=== PATIENT | male | born 1985 | race Caucasian/White ===

== ENCOUNTER 2017-04-04 00:39 | Emergency (ER) | payer BC ==
[~2017-04-04] VITALS: Ht 182.9 cm; Wt 110.0 kg
[2017-04-04 01:20] LABS: HEMATOCRIT 38.4 % (38.0-50.0); MCH 30.2 PG (29.0-34.0); MCHC 34.9 G/DL (30.0-36.0); MCV 86.5 FL (86-99); MEAN PLAT.VOLUME 10.2 uM^3 (9.0-12.4); PLATELET COUNT 200 K/uL (156-360); RBC DIS.WIDTH-CV 11.8 % (11.8-14.6); RBC DIS.WIDTH-SD 37.3 % (39-53); RED BLOOD COUNT 4.44 M/uL (4.00-5.50)
[2017-04-04 01:34] LABS: CHLORIDE 107 mEq/L (99-109); POTASSIUM 3.7 mEq/L (3.7-5.4); SODIUM 141 mEq/L (136-147)
[2017-04-04 01:36] LABS: GLUCOSE 130 mg/dL (70-99)
[2017-04-04 01:37] LABS: ANION GAP 9 MEQ/L (2-14)
[2017-04-04 01:38] LABS: TOTAL BILIRUBIN 0.5 mg/dL (0.0-1.0)
[2017-04-04 01:39] LABS: ALKALINE PHOSPHATASE 61 IU/L (3-129)
[2017-04-04 01:41] LABS: UREA NITROGEN (BUN) 17 mg/dL (9-23)
[2017-04-04 01:42] LABS: D-DIMER ELISA < 0.15 mg/L FEU (< 0.57); GFR ESTIMATE (CALCULATED) > 59 mL/min/
[2017-04-04 01:57] LABS: TROP-I INTERPRETATION NEGATIVE; TROPONIN-I < 0.01 ng/mL (0.0-0.30)
[2017-04-04 04:08] LABS: ADD MIUA? YES; BILIRUBIN NEGATIVE; BLOOD NEGATIVE; COLOR YELLOW ((YELLOW)); GLUCOSE (STRIP) NEGATIVE; KETONES 20; LEUKOCYTES NEGATIVE; NITRITE NEGATIVE; PROTEIN (STRIP) NEGATIVE; SPECIFIC GRAVITY 1.026 (1.000-1.030); UROBILINOGEN 0.2 MG/DL (0.2-1.0)
[2017-04-04 04:17] LABS: ADD MEDTOX COMMENT Y; AMPHETAMINE NEGATIVE (500 ng/mL); BARBITURATES NEGATIVE (200 ng/mL); BENZODIAZEPINES NEGATIVE (150 ng/mL); COCAINE NEGATIVE (150 ng/mL); INTERNAL CONTROLS VALID? YES; METHADONE NEGATIVE (200 ng/mL); METHAMPHETAMINE NEGATIVE (500 ng/mL); OPIATES (MORPHINE) NEGATIVE (100 ng/mL); OXYCODONE NEGATIVE (100 ng/mL); PHENCYCLIDINE NEGATIVE (25 ng/mL); PROPOXYPHENE NEGATIVE (300 ng/mL); THC CANNABINOIDS PRESUMPTIVE POSITIVE (50 ng/mL); TRICYCLIC ANTIDEPRESSANTS NEGATIVE (300 ng/mL)
[2017-04-04 04:22] LABS: BACTERIA NONE SEEN /HPF; EPITHELIAL CELLS RARE /HPF; MUCUS TRACE /LPF; UCUL ADDED? NO; WHITE BLOOD CELLS 0-5 /HPF (0-5)
[2017-04-04 04:30] LABS: SERUM ETHYL ALCOHOL < 10 mg/dL
[2017-04-04 04:33] VITALS: BP 111/62
[2017-04-04] MEDS ORDERED: PREDNISONE20 MG PO (04:33)
== END 2017-04-04 04:34 | disposition home or self-care (01) ==
LOC: EME 00:39
PROVIDERS: Physician Assistant
DX: R55 Syncope and collapse (principal); R42 Dizziness and giddiness; F12.90 Cannabis use, unspecified, uncomplicated; F17.200 Nicotine dependence, unspecified, uncomplicated
CPT/HCPCS: 70450; 71020; 72125; 80053; 81003; 84484; 84999; 85027; 85379; 93005; 99281; 99285; G0480; J7030